=== PATIENT | female | born 1970 | race Caucasian/White ===

== ENCOUNTER 2021-01-03 10:23 | Outpatient (REF) | payer OTHER, SELFPAY | END 2021-01-03 10:24 | disposition home or self-care (01) | LOC: HO.LAB 10:23 | PROVIDERS: Visit Provider Internal Medicine | DX: Z20.822 Contact with and (suspected) exposure to COVID-19 (principal) | CPT/HCPCS: 36415; C9803; U0003; U0005 ==

== ENCOUNTER 2021-05-13 20:02 | Emergency (ER) | payer OTHER, SELFPAY ==
[2021-05-13 20:08] VITALS: BP 130/67; PULSE 86; RESP 16; TEMP 36.4; O2SAT 98; BMI 32.4
--- NOTE | 2021-05-13 20:30 | ED.ABDPAIN ---
HPI - Abdominal Pain General Chief Complaint: Abdominal Pain Stated Complaint: abd pain Time Seen by Provider: 05/13/21 20:24 Source: patient Mode of arrival: EMS Limitations: no limitations History of Present Illness HPI narrative: patient is a 50-year-old female who had for kidney stones a removed 4 days ago at [facility]. She states she had the stent removed today at [facility] and was sent home with codeine. She states she was feeling fine until this afternoon, after she took her coding and she started having lower left-sided abdominal pain which radiates to the left side and up. she states she was given Pyridium so her urine is orange so she cannot tell if there is blood in her urine. She states she does not have pain with urination and she denies any fevers. Related Data Previous Rx's Medication Instructions Recorded nitrofurantoin monohyd/m-cryst 100 mg PO Q12H 5 Days #10 cap 05/13/21 Allergies Allergy/AdvReac Type Severity Reaction Status Date / Time amoxicillin [From AUGMENTIN] Allergy Unknown UNKNOWN Unverified 08/02/20 18:45 clavulanic acid Allergy Unknown UNKNOWN Unverified 08/02/20 18:45 [From AUGMENTIN] Penicillins [PENICILLINS] Allergy Unknown UNKNOWN Unverified 08/02/20 18:45 Review of Systems Review of Systems Yes all other systems are reviewed and are negative Physical Exam Vital Signs: Vital Signs: Last Vital Signs Temp 97.5 F 05/13/21 20:08 Pulse 86 05/13/21 20:08 Resp 16 05/13/21 20:08 BP 130/67 05/13/21 20:08 Pulse Ox 98 05/13/21 20:08 Body Mass Index 32.4 Const: General: cooperative, healthy appearing, comfortable and no acute distress Nutritional Appearance: average body habitus Orientation/consciousness: patient oriented x3 HENMT: Head: Yes normal to inspection Eyes: General: appearance normal, both eyes and all related structures Resp: Effort & Inspection: normal respiratory effort and able to speak in complete sentences Auscultation: clear to auscultation bilaterally Cardio: Rate: regular rate Rhythm: regular rhythm Heart sounds: normal S1 and S2 GI: Inspection: Yes normal to inspection Palpation (GI): Soft to palpation and Tenderness to palpation present (GI) in the LLQ and in the LUQ; not in the epigastrum, not at McBurney's point, not periumbilically, not suprapubicly and Guillermo's sign negative Skin: General skin exam: no rashes or lesions noted Neuro: General: patient oriented x3 Extrem: General: Yes normal to inspection Course Course Course Narrative: patient is a 50-year-old female who had for kidney stones a removed 4 days ago at [facility] and a stent removed today at [facility] and has had a few hours of Left-sided pain since. Vital signs were stable, physical exam remarkable for tenderness in the abdomen on the left side. will get UA, if negative, will do an abd workup. Reevaluation(s) Reevaluation #1: UA+, will give first dose of antibiotics in ED with toradol for pain control. RX for Macrobid sent to [facility]. MDM - Abdominal Pain Lab Data Labs: Lab Results 05/13/21 Range/Units 20:35 Urine Color BROWN Urine Appearance CLOUDY Urine pH 6.0 (5.0-8.0) Ur Specific [place] 1.025 (1.005-1.025) Urine Protein 3+ H (NEG-TRACE) MG/DL Urine Glucose (UA) 100 H (NEG) MG/DL Urine Ketones 15 (NEG) MG/DL Urine Blood 3+ H (NEG) Urine Nitrite POS H (NEG) Ur Leukocyte Esterase NEG (NEG) Urine RBC TNTC H (0) /HPF Urine WBC 1-4 (0-4) /HPF Ur Squamous Epith Cells TRACE /LPF Urine Bacteria 1+ /LPF Discharge Plan Discharge Clinical Impression: Urinary tract infection Qualifiers: Urinary tract infection type: acute cystitis Hematuria presence: with hematuria Qualified Code(s): N30.01 - Acute cystitis with hematuria Patient Disposition: Home, Self-Care Instructions: Urinary Tract Infection in Women (ED) Additional Instructions: Please be sure to drink lots of water to flush out the infection. we also have given you your 1st dose of antibiotics tonight, please fill at the pharmacy tomorrow morning and start taking the antibiotic tomorrow morning. We have also given you 1 dose of Toradol for pain control in the emergency department, please do not take any ibuprofen for 8 hours. Please be sure to follow-up with your urologist. If you develop any fevers or your pain gets worse, please return to the emergency department. Prescriptions: New nitrofurantoin monohyd/m-cryst 100 mg capsule 100 mg PO Q12H 5 Days Qty: 10 RF: 0 PMFSH Social History Social History Advance Directives: No Advance Directives Information Provided: Yes Patient : No
[2021-05-13 20:56] LABS: Glucose Urine UA 100 MG/DL (NEG); Leukocyte Esterase Urine NEG (NEG); Nitrite Urine POS (NEG); Specific Gravity - Urine 1.025 (1.005-1.025); UACC Culture Trigger YES; Urine Blood 3+ (NEG); Urine Ketones 15 MG/DL (NEG); Urine Protein 3+ MG/DL (NEG-TRACE)
[2021-05-13 21:02] LABS: Color Urine BROWN
[2021-05-13 21:04] LABS: Appearance Urine CLOUDY
[2021-05-13 21:12] LABS: Bacteria Urine 1+ /LPF; RBC Urine TNTC /HPF (0); Squamous Epithelial Cell Urine TRACE /LPF
[2021-05-13] MEDS: Nitrofurantoin Monohyd/M-Cryst 100 MG CAPSULE PO (21:21)
[2021-05-13] MEDS: Ketorolac Tromethamine 15 MG/ML VIAL IVPUSH (21:21)
== END 2021-05-13 21:33 | disposition home or self-care (01) ==
PROVIDERS: Physician Assistant; Emergency Provider Internal Medicine; PCP Internal Medicine
DX: N30.01 Acute cystitis with hematuria (principal); Z87.442 Personal history of urinary calculi; Z98.890 Other specified postprocedural states
CPT/HCPCS: 81001; 81003; 87086; 96374; 99284; J1885

== ENCOUNTER 2021-11-01 14:54 | Emergency (ER) | payer OTHER, SELFPAY ==
--- NOTE | ~2021-11-01 | XR_ITS ---
EXAMINATION: XR CHEST CLINICAL INFORMATION: Cough. COMPARISON: Chest radiograph dated from 12/07/2014. TECHNIQUE: 2 views of the chest were obtained. FINDINGS: No significant abnormality is noted involving the heart, lungs, mediastinum, bony thorax or soft tissues. XR/XR chest 2V IMPRESSION: Unremarkable examination.
--- NOTE | ~2021-11-01 | US_ITS ---
Pelvic ultrasound with limited Doppler. History: Pain. Last menstrual period about 2 weeks ago. Technique: Transabdominal and transvaginal ultrasound of pelvic region was performed with paiz scale, color, and limited pulsed Doppler interrogation. Findings: Comparison with a CT of the abdomen/pelvis done earlier today at 8:42 PM. The uterus measures 10.4 x 4.5 x 5.3 cm. No focal masses are seen. The endometrium measures 1.5 mm and is within normal limits. Nabothian cysts are identified in the cervix as well as a small amount of endocervical fluid. The right ovary has a normal morphologic appearance and measures 2.0 x 1.8 x 2.1 cm. There is normal arterial flow on color and pulsed Doppler. The left ovary has a normal morphologic appearance and measures 2.6 x 1.1 x 1.7 cm. There is normal arterial flow on color and pulsed Doppler. There is no free fluid in the pelvis. US/US pelvic ovarian doppler Impression: Small amount of endocervical fluid of uncertain significance and possibly physiologic. Correlate with physical examination. No evidence of ovarian torsion at the moment of this examination.
--- NOTE | ~2021-11-01 | CT_ITS ---
EXAMINATION: CT HEAD WITHOUT CONTRAST CLINICAL INFORMATION: Headache. COMPARISON: No similar priors. TECHNIQUE: Contiguous axial imaging was performed from the skull base to vertex without intravenous administration of contrast. This CT examination was performed using dose optimization techniques as appropriate, variously including the following: *Automated exposure control *Adjustment of mA and/or kV according to patient size (this includes techniques or standardized protocols for targeted exams where dose is matched to indication/reason for exam; i.e. extremities or head) *Use of iterative reconstruction technique DLP: 806 mGy-cm FINDINGS: There is no evidence of acute intracranial hemorrhage or territorial infarction. No abnormal mass effect or midline shift is seen. Reid to white matter differentiation is well preserved. No extra-axial fluid collections are identified. The ventricles are normal in size. There is no abnormal attenuation within the brain parenchyma. The osseous structures and soft tissues are normal. The mastoid air cells and visualized portions of the paranasal sinuses are well aerated. CT/CT head/brain wo con IMPRESSION: No acute intracranial pathology.
--- NOTE | ~2021-11-01 | CT_ITS ---
EXAMINATION: CT ABDOMEN AND PELVIS WITH CONTRAST CLINICAL INFORMATION: Pain of right lower quadrant. COMPARISON: Kidney ultrasound from 06/20/2021. Abdomen CT from 08/25/2014. TECHNIQUE: Multidetector volumetric images were obtained from the superior aspect of the liver through the pubic symphysis following administration 85 mL of Omnipaque 350 intravenous contrast. Sagittal and coronal reformatted images were obtained on the technologist's workstation. This CT examination was performed using dose optimization techniques as appropriate, variously including the following: *Automated exposure control *Adjustment of mA and/or kV according to patient size (this includes techniques or standardized protocols for targeted exams where dose is matched to indication/reason for exam; i.e. extremities or head) *Use of iterative reconstruction technique DLP: 1001 mGy-cm FINDINGS: LUNG BASES: Normal. No pulmonary consolidation or pleural effusion at either lung base. LIVER: The liver has normal size, shape, and attenuation. No evidence of liver mass. GALLBLADDER AND BILIARY TREE: Gallbladder is without radiopaque stones, wall thickening or pericholecystic fluid. No dilated bile ducts. PANCREAS: Normal. No edema, pancreatic ductal dilatation or mass. SPLEEN: Normal. ADRENAL GLANDS: Normal. KIDNEYS AND URETERS: The kidneys have normal size and cortical thickness. No perinephric fluid collection. No urolithiasis or hydroureteronephrosis. BLADDER: Normal. No calculi or wall thickening. BOWEL AND PERITONEUM: Stomach is unremarkable. No dilated loops of bowel. The appendix is normal; it measures 0.5-0.6 cm diameter. No periappendiceal fat stranding. No overt bowel wall thickening. No ascites or pneumoperitoneum. ABDOMINAL WALL: There is a very small fat-containing umbilical hernia. VASCULATURE: Unremarkable. LYMPH NODES: No pathologic sized lymph nodes in the abdomen or pelvis. No inguinal lymphadenopathy. PELVIC VISCERA: There is an anteverted, anteflexed uterus. 1.1 cm subserosal leiomyoma of the anterior uterine body. The ovaries are unremarkable. Small, physiologic amount of free fluid is seen in the posterior cul-de-sac. SKELETAL: Unremarkable. CT/CT abdomen pelvis w con IMPRESSION: * No acute imaging abnormalities in the abdomen or pelvis. No evidence of appendicitis. No specific source of right lower quadrant pain is identified. * No evidence of nephrolithiasis or hydronephrosis.
[2021-11-01 14:56] VITALS: BP 184/80; PULSE 96; RESP 18; TEMP 36.9; O2SAT 98; BMI 34.1
[2021-11-01 15:37] LABS: COVID-19 Test Negative (Negative); IDNOW Serial# 55D5AD1C
[2021-11-01 17:21] LABS: MANUAL DIFF FLAG NO
[2021-11-01 17:23] LABS: Basophils Absolute Auto 0.1 X10*3/uL (0.0-0.2); Basophils Percent Auto 0.9 % (0-2); Eosinophils Absolute Auto 0.1 X10*3/uL (0.0-0.4); Eosinophils Percent Auto 1.2 % (0-4); Hematocrit 40.7 % (37.0-47.0); Hemoglobin 13.6 g/dl (12.0-16.0); Imm Gran Abs Auto 0.02 X10*3/uL (0.00-0.03); Imm Gran Pct Auto 0.2 % (0.0-0.4); Lymphocytes Absolute Auto 2.1 X10*3/uL (1.2-4.9); Lymphocytes Percent Auto 22.2 % (20-40); Mean Corpuscular HGB Conc 33.4 g/dl (31.0-35.0); Mean Corpuscular Volume 83.7 fL (80.0-98.0); Mean Platelet Volume 9.2 fL (9.4-12.3); Monocytes Absolute Auto 0.6 X10*3/uL (0.1-1.2); Monocytes Percent Auto 6.3 % (2-11); Neutrophils Absolute Auto 6.4 x10*3/uL (2.0-8.3); Neutrophils Percent Auto 69.2 % (45-73); Platelet Count 281 X10*3/uL (160-400); Red Blood Count 4.86 X10*6/uL (4.20-5.50); Red Cell Distribution Width 13.2 % (11.0-16.0); White Blood Count 9.3 X10*3/uL (4.8-10.8)
[2021-11-01 17:36] LABS: Alanine Aminotransferase 29 U/L (0-31); Albumin Level 4.1 g/dL (3.5-5.0); Alkaline Phosphatase 79 U/L (39-117); Anion Gap 12 (12-20); Aspartate Amino Transferase 23 U/L (5-31); Bilirubin Total 0.4 mg/dL (0.0-1.0); Blood Urea Nitrogen 21 mg/dL (9-16); Calcium 9.3 mg/dL (8.4-10.2); Carbon Dioxide 27 mmol/L (22-29); Chloride 105 mmol/L (96-108); Creatinine Clr Calc Pharmacy 92.3; Estimated Glomerular Filt Rate > 60; Glucose Random 84 mg/dL (60-115); Potassium 3.6 mmol/L (3.3-5.1); Sodium 140 mmol/L (135-145); Total Protein 7.1 g/dL (6.5-8.0)
--- NOTE | 2021-11-01 19:27 | ED_ITS ---
HPI - Back Pain/Injury General Chief Complaint: Abdominal Pain Stated Complaint: Abd pain Time Seen by Provider: 11/01/21 19:14 Source: patient Mode of arrival: ambulatory Limitations: no limitations History of Present Illness HPI Narrative: 50-year-old female past medical history significant for kidney stones presents to the emergency department severe right lower quadrant pain that is radiating to her back. Patient tells me it started 2 days ago and has progressively worsened, it is now constant in nature she tells me that the pain is worse with movement, coughing and laughing. She reports associated nausea, anorexia. She describes the pain as initially being a crampy abdominal pain and then it turned into stabbing abdominal pain that is constant in nature. She tells me she has never had pain like this before. No previous abdominal surgeries to abdomen. Patient also tells me that she has been experiencing slight upper respiratory symptoms over the past week. She also reports dysuria. Denies weakness, chest pain, shortness of breath, fevers, weakness. MD elicited complaint: other (right sided flank pian and abdominal pain ) Onset (ago): day(s) (2) Timing: constant Severity: severe Pain scale (0-10): 10 Similar Symptoms Previously: No Quality: sharp Location: right flank Radiation: other (RLQ pain radiating to flank ) Exacerbating factors: movement Relieving factors: none Associated symptoms: other (nausea, chills ) Work related injury: No Related Data Previous Rx's Medication Instructions Recorded nitrofurantoin 100 mg PO Q12H 5 Days #10 cap 05/13/21 monohydrate/macrocrystals 100 mg capsule morphine 15 mg immediate release 15 mg PO Q8H PRN #10 tab 11/01/21 tablet ondansetron 4 mg disintegrating 4 mg PO ONCE PRN #10 tab 11/01/21 tablet Allergies Allergy/AdvReac Type Severity Reaction Status Date / Time amoxicillin [From AUGMENTIN] Allergy Unknown UNKNOWN Verified 11/01/21 14:55 clavulanic acid Allergy Unknown UNKNOWN Verified 11/01/21 14:55 [From AUGMENTIN] Penicillins [PENICILLINS] Allergy Unknown UNKNOWN Verified 11/01/21 14:55 Review of Systems Review of Systems: Constitutional : No Weight loss, No Fever, No Chills, + Fatigue, No Malaise, + anorexia ENT/Mouth : No sore throat, No Rhinorrhea Eyes: No Eye Pain, No Swelling, No Redness Cardiovascular : No Chest Pain, No SOB, No Dyspnea on Exertion, No Orthopnea, No Edema, No Palpitations Respiratory : + Cough, No Sputum, No Wheezing Gastrointestinal : + Nausea, No Vomiting, No Diarrhea, No Constipation, + abdominal Pain, No Hematochezia, No Melena Genitourinary : No Dysuria, No Urinary Frequency, No Hematuria, Musculoskeletal : No joint pain, No Myalgias, No Joint Swelling Skin : No Skin Lesions, No rash Neuro : No Weakness, No Numbness, No Dizziness, No Headache Psych : No Anxiety/Panic, No Depression Heme/Lymph: No Bruising, No Bleeding,No Lymphadenopathy Endocrine : No Polyuria, No Polydipsia All other systems reviewed and are negative Yes all other systems are reviewed and are negative [facility] Past Medical History Attestation statement: The following information was validated with the patient. Source: old records reviewed and nursing notes reviewed Medical History Kidney stones Patient denies medical problems Social History Social History Advance Directives: No Advance Directives Information Provided: Yes Physical Exam Vital Signs: Vital Signs: Last Vital Signs Temp 98.4 F 11/01/21 14:56 Pulse 96 11/01/21 14:56 Resp 18 11/01/21 14:56 BP 184/80 H 11/01/21 14:56 Pulse Ox 98 11/01/21 14:56 BMI result Body Mass Index 34.1 VSS- hypertension Appearance: Alert.? Oriented X3.? No acute distress.? Patient appears uncomfortable Head: Normocephalic, atraumatic, no step-offs or deformities Eyes: Pupils equal, round and reactive to light.? ENT: Pharynx normal.? Neck: Normal inspection.? Neck supple.? CVS: Normal heart rate and rhythm.? Pulses normal.? Respiratory: No respiratory distress.? Breath sounds normal.? Abdomen: Soft and + tenderness to RUQ, RLQ. + rosving sign, mcburneys, psoas and obtruator. Skin: Skin warm and dry.? Normal skin color.? Normal skin turgor.? Extremities: No lower extremity edema.? No calf ttp. 5/5 strength to bilateral upper and lower extremities Back: No midline tenderness, no C-spine tenderness, full range of motion, no CVA tenderness bilaterally Neuro: Oriented X 3.? No motor deficit.? No sensory deficit. Course Reevaluation(s) Reevaluation #1: CT of head negative, CT of abdomen pelvis negative. UA pending Time: 21:32 Reevaluation #2: CT/NG by PCR urine pending at this time. Ultrasound report pending. Sign out has been given to Brandy YU. At time that sign out was given patient was stable, vital signs were stable, patient's pain was well controlled with morphine IV. Time: 22:27 MDM - Back Pain/Injury MDM Narrative Medical decision making narrative: 1699 50-year-old female past medical history significant for nephrolithiasis presents to the emergency department with severe right lower quadrant pain that is constant and stabbing in nature, radiating to the right flank with associated nausea, anorexia x2 days progressively worsening. No previous abdominal surgeries. Last meal was this morning. Patient is also complaining of a severe headache, localized to the front aspect of her head, 1 of the worst 1 she has had. She tells me it is not going away. Upon physical examination patient's vitals stable, she is noted to be hypertens cathy, likely secondary to pain. She has severe pain with palpation of right lower quadrant and right upper quadrant. Positive Rovsing, obturator, psoas and McBurney's point. Concerning for appendicitis. Lungs are clear. Regular rate and rhythm. No focal neuro deficits. Patient appears uncomfortable Plan at this time is to obtain basic labs, and obtain a CT of the abdomen and pelvis with contrast. Patient is also complaining of a severe headache, worst 1 in a long time a CT of the head brain also be done to rule out a bleed. Basic labs will be obtained. As well as inflammatory markers. Medical Records Attestation: I reviewed the patient's medical records. Lab Data Attestation: I reviewed the patient's lab results. Result diagrams: 11/01/21 17:10 11/01/21 17:10 Labs: Lab Results 11/01/21 11/01/21 11/01/21 Range/Units 15:02 17:10 17:10 WBC 9.3 (4.8-10.8) X10*3/uL RBC 4.86 (4.20-5.50) X10*6/uL Hgb 13.6 (12.0-16.0) g/dl Hct 40.7 (37.0-47.0) % MCV 83.7 (80.0-98.0) fL MCH 28.0 (27.0-33.0) pg MCHC 33.4 (31.0-35.0) g/dl RDW 13.2 (11.0-16.0) % Plt Count 281 (160-400) X10*3/uL MPV 9.2 L (9.4-12.3) fL Immature Gran % (Auto) 0.2 (0.0-0.4) % Neut % (Auto) 69.2 (45-73) % Lymph % (Auto) 22.2 (20-40) % Adams % (Auto) 6.3 (2-11) % Eos % (Auto) 1.2 (0-4) % Baso % (Auto) 0.9 (0-2) % Lymph # (Auto) 2.1 (1.2-4.9) X10*3/uL Adams # (Auto) 0.6 (0.1-1.2) X10*3/uL Eos # (Auto) 0.1 (0.0-0.4) X10*3/uL Baso # (Auto) 0.1 (0.0-0.2) X10*3/uL Abs Immat Gran (auto) 0.02 (0.00-0.03) X10*3/uL Absolute Neuts (auto) 6.4 (2.0-8.3) x10*3/uL Absolute Nucleated RBC 0.000 (0.0-0.012) X10*3/uL Nucleated RBC % (auto) 0.0 (0.0-0.2) /100WBC ESR (0-20) MM/HR Sodium 140 (135-145) mmol/L Potassium 3.6 (3.3-5.1) mmol/L Chloride 105 (96-108) mmol/L Carbon Dioxide 27 (22-29) mmol/L Anion Gap 12 (12-20) BUN 21 H (9-16) mg/dL Creatinine 0.84 (0.5-1.4) mg/dL Estim Creat Clear Calc 92.3 Estimated GFR > 60 Random Glucose 84 (60-115) mg/dL Calcium 9.3 (8.4-10.2) mg/dL Total Bilirubin 0.4 (0.0-1.0) mg/dL AST 23 (5-31) U/L ALT 29 (0-31) U/L Alkaline Phosphatase 79 (39-117) U/L C-Reactive Protein 0.56 H (< or = 0.50) mg/dL Total Protein 7.1 (6.5-8.0) g/dL Albumin 4.1 (3.5-5.0) g/dL Amylase 30 (28-100) U/L Lipase 16 (8-78) U/L Beta HCG, Quant < 2 mIU/mL COVID-19 (BETTINA) Negative (Negative) COVID-19 Clin Com See Note 11/01/21 Range/Units 17:10 WBC (4.8-10.8) X10*3/uL RBC (4.20-5.50) X10*6/uL Hgb (12.0-16.0) g/dl Hct (37.0-47.0) % MCV (80.0-98.0) fL MCH (27.0-33.0) pg MCHC (31.0-35.0) g/dl RDW (11.0-16.0) % Plt Count (160-400) X10*3/uL MPV (9.4-12.3) fL Immature Gran % (Auto) (0.0-0.4) % Neut % (Auto) (45-73) % Lymph % (Auto) (20-40) % Adams % (Auto) (2-11) % Eos % (Auto) (0-4) % Baso % (Auto) (0-2) % Lymph # (Auto) (1.2-4.9) X10*3/uL Adams # (Auto) (0.1-1.2) X10*3/uL Eos # (Auto) (0.0-0.4) X10*3/uL Baso # (Auto) (0.0-0.2) X10*3/uL Abs Immat Gran (auto) (0.00-0.03) X10*3/uL Absolute Neuts (auto) (2.0-8.3) x10*3/uL Absolute Nucleated RBC (0.0-0.012) X10*3/uL Nucleated RBC % (auto) (0.0-0.2) /100WBC ESR 9 (0-20) MM/HR Sodium (135-145) mmol/L Potassium (3.3-5.1) mmol/L Chloride (96-108) mmol/L Carbon Dioxide (22-29) mmol/L Anion Gap (12-20) BUN (9-16) mg/dL Creatinine (0.5-1.4) mg/dL Estim Creat Clear Calc Estimated GFR Random Glucose (60-115) mg/dL Calcium (8.4-10.2) mg/dL Total Bilirubin (0.0-1.0) mg/dL AST (5-31) U/L ALT (0-31) U/L Alkaline Phosphatase (39-117) U/L C-Reactive Protein (< or = 0.50) mg/dL Total Protein (6.5-8.0) g/dL Albumin (3.5-5.0) g/dL Amylase (28-100) U/L Lipase (8-78) U/L Beta HCG, Quant mIU/mL COVID-19 (BETTINA) (Negative) COVID-19 Clin Com Imaging Data Chest x-ray: Attestation: I personally reviewed and interpreted this imaging study as follows: Radiologist's impression: FINDINGS: No significant abnormality is noted involving the heart, lungs, mediastinum, bony thorax or soft tissues. XR/XR chest 2V IMPRESSION: Unremarkable examination. CT scan - abdomen: Attestation: I personally reviewed and interpreted this imaging study as follows: Radiologist's impression: CT/CT abdomen pelvis w con IMPRESSION: *? No acute imaging abnormalities in the abdomen or pelvis. No evidence of appendicitis. No specific source of right lower quadrant pain is identified. *? No evidence of nephrolithiasis or hydronephrosis. CT of head: Attestation: I personally reviewed and interpreted this imaging study as follows: Radiologist's impression: FINDINGS: There is no evidence of acute intracranial hemorrhage or territorial infarction. No abnormal mass effect or midline shift is seen. Reid to white matter differentiation is well preserved. No extra-axial fluid collections are identified. The ventricles are normal in size. There is no abnormal attenuation within the brain parenchyma. The osseous structures and soft tissues are normal. The mastoid air cells and visualized portions of the paranasal sinuses are well aerated. ? CT/CT head/brain wo con IMPRESSION: No acute intracranial pathology. Critical Care Time Critical Care Time Critical Care Time: No Discharge Plan Discharge Clinical Impression: Abdominal pain, Headache Patient Disposition: Home, Self-Care Instructions: Acute Headache (ED), Abdominal Pain (ED) Additional Instructions: Take your medications as prescribed. If you were prescribed antibiotics today, it is important that you take your medication to their entirety, do not skip any doses, do not finish them early. Follow-up with your primary care provider this week. Take ibuprofen every 6 hours Tylenol every 4 as needed for pain preferably. Your other option is to take a narcotic, morphine has been sent to her pharmacy, morphine can cause addiction and dependence, I advised to try ibuprofen and Tylenol alternating, and only take a narcotic if severe pain is being experienced Return to the emergency department with new or worsening symptoms. In case of emergency call 911 I attest that I have reviewed patients Mass[employer], and at the time prescribing the patient a controlled substance is appropriate based off of patients diagnosis and treatment plan. Prescriptions: New ondansetron 4 mg tablet,disintegrating 4 mg PO ONCE PRN (Reason: nausea and vomiting) Qty: 10 RF: 0 morphine 15 mg tablet 15 mg PO Q8H PRN (Reason: pain) Qty: 10 RF: 0 No Action nitrofurantoin monohyd/m-cryst 100 mg capsule 100 mg PO Q12H 5 Days Qty: 10 RF: 0 Referrals: Humza Huddleston MD [Primary Care Provider] - 2 days
[2021-11-01 19:35] LABS: Amylase 30 U/L (28-100); Lipase 16 U/L (8-78)
[2021-11-01] MEDS: Morphine Sulfate 4 MG/ML CARTRIDGE IVPUSH (19:57)
[2021-11-01] MEDS: ondansetron HCL 4 MG/2 ML VIAL IVPUSH (19:58)
[2021-11-01 20:10] LABS: C Reactive Protein 0.56 mg/dL (< or = 0.50)
[2021-11-01 20:12] LABS: HCG Quantitative < 2 mIU/mL
[2021-11-01] MEDS: iohexoL 350 MG/ML 100 ML INFUS..BTL 85 ML IV (20:59)
[2021-11-01 21:09] LABS: Erythrocyte Sedimentation Rate 9 MM/HR (0-20)
[2021-11-01 22:53] LABS: Appearance Urine CLEAR; Color Urine YELLOW; Glucose Urine UA NEG (NEG); Leukocyte Esterase Urine NEG (NEG); Nitrite Urine NEG (NEG); Urine Blood NEG (NEG); Urine Ketones NEG (NEG); Urine Protein NEG (NEG-TRACE)
[2021-11-01] MEDS: 0.9 % Sodium Chloride 1,000 ML 999 ML IV (23:04)
[2021-11-01 23:43] VITALS: BP 148/60; PULSE 74; RESP 16; O2SAT 96
[2021-11-03 12:09] LABS: CT PCR NOT DETECTED (Not Detect.); NG PCR NOT DETECTED (Not Detect.)
== END 2021-11-02 00:40 | disposition home or self-care (01) ==
PROVIDERS: Physician Assistant; Emergency Provider Emergency Medicine; PCP Internal Medicine
DX: R10.31 Right lower quadrant pain (principal); R51.9 Headache, unspecified; R60.0 Localized edema; R07.89 Other chest pain; R06.02 Shortness of breath; Z20.822 Contact with and (suspected) exposure to COVID-19; Z79.899 Other long term (current) drug therapy
CPT/HCPCS: 36415; 70450; 71046; 74177; 80053; 81003; 82150; 83690; 84702; 85025; 85652; 86140; 87491; 87591; 87635; 93975; 96361; 96374; 96375; 99283; J2270; J2405; Q9967

== ENCOUNTER 2021-12-17 09:02 | Emergency (ER) | payer OTHER, SELFPAY ==
[2021-12-17 09:37] VITALS: BP 152/80; PULSE 18; RESP 18; TEMP 36.7; O2SAT 98; BMI 36.6
--- NOTE | 2021-12-17 09:41 | ECG_ITS ---
Test Reason : high blood pressure Blood Pressure : / mmHG Vent. Rate : 077 BPM Atrial Rate : 077 BPM P-R Int : 176 ms QRS Dur : 084 ms QT Int : 456 ms P-R-T Axes : 070 039 070 degrees QTc Int : 516 ms Normal sinus rhythm Nonspecific ST and T wave abnormality Abnormal ECG When compared with ECG of 07-DEC-2014 20:12, Nonspecific T wave abnormality now evident in Anterolateral leads Referred By: Generic ED Physician Electronically Signed By:JANNA BRAND
--- NOTE | 2021-12-17 11:05 | ED_ITS ---
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 elicited complaint: headache (chest tighness, BP 170 to 150s this past week) Pertinent past history: other (headaches, ADHD) Onset (ago): week(s) (1) Onset description: gradually Location: diffuse Severity: moderate Quality & Timing: aching and dull Exacerbating factors: none Relieving factors: nothing Context: other (recent noted increased in her BP - chronically on ADHD medications no prior issues with her BP) Associated symptoms: other (chest tightness) Treatments prior to arrival: other (takes gabapentin) Related Data Previous Rx's Medication Instructions Recorded nitrofurantoin 100 mg PO Q12H 5 Days #10 cap 05/13/21 monohydrate/macrocrystals 100 mg capsule morphine 15 mg immediate release 15 mg PO Q8H PRN #10 tab 11/01/21 tablet ondansetron 4 mg disintegrating 4 mg PO ONCE PRN #10 tab 11/01/21 tablet amlodipine 5 mg tablet 5 mg PO DAILY #30 tab 12/17/21 Allergies Allergy/AdvReac Type Severity Reaction Status Date / Time amoxicillin [From Allergy Unknown UNKNOWN Verified 12/17/21 09:37 AUGMENTIN] clavulanic acid Allergy Unknown UNKNOWN Verified 12/17/21 09:37 [From AUGMENTIN] Penicillins [PENICILLINS] Allergy Unknown UNKNOWN Verified 12/17/21 09:37 Review of Systems Verdana 4l Review of Systems: Verdana 4d Verdana 4d Constitutional : No Fever, No Chills, No Fatigue ENT/Mouth : No sore throat, No Rhinorrhea Eyes: No Eye Pain, No Swelling, No Redness Cardiovascular : pos Chest Pain, No SOB, No Dyspnea on Exertion Respiratory : No Cough, No Sputum GastrointestinalGastrointestinal : No Nausea, No Vomiting, No Diarrhea, No abdominal Pain Genitourinary : No Dysuria, No Urinary Frequency, No Hematuria, Musculoskeletal : No joint pain, No Myalgias, No Joint Swelling Skin : No Skin Lesions, No rash Neuro : No Weakness, No Numbness, No Dizziness, positive Headache Psych : No Anxiety/Panic, No Depression Heme/Lymph: No Bruising, No Bleeding,No Lymphadenopathy Endocrine : No Polyuria, No Polydipsia All other systems reviewed and are negative [facility] Past Medical History Medical History ADHD Depression Kidney stones Patient denies medical problems Social History Social History Patient Tobacco Use Status: Never used Tobacco Advance Directives: No Advance Directives Information Provided: No Physical Exam Verdana 4l Vital Signs: Verdana 4d Verdana 4d Vital Signs: Verdana 4d Verdana 4Bd Last Vital Signs Verdana 4d Drilling Inspector New 4d Drilling Inspector New 4d Temp 98.0 F 12/17/21 09:37 Drilling Inspector New 4d Pulse 18 L 12/17/21 09:37 Drilling Inspector New 4d Resp 18 12/17/21 09:37 BP 152/80 H 12/17/21 09:37 Pulse Ox 98 12/17/21 09:37 BMI result Body Mass Index 36.6 Appearance: Alert. Oriented X3. No acute distress. Eyes: Pupils equal, round and reactive to light. ENT: Pharynx normal. Neck: Normal inspection. Neck supple. CVS: Normal heart rate and rhythm. Pulses normal. Respiratory: No respiratory distress. Breath sounds normal. Abdomen: Soft and non-tender. Skin: Skin warm and dry. Normal skin color. Normal skin turgor. Extremities: No lower extremity edema. No calf ttp Neuro: Oriented X 3. No motor deficit. No sensory deficit. 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 Will obtain basic labs, trop x 2, EKG, likely start on low dose amlodipine and reassess. No neuro findings, afebrile, headaches have been present for some time doubt DIE TRIMMER infection or SAH Lab Data Result diagrams: 12/17/21 11:21 12/17/21 11:21 Labs: Lab Results 12/17/21 12/17/21 12/17/21 Range/Units 11:21 11:21 11:21 WBC 6.9 (4.8-10.8) X10*3/uL RBC 4.75 (4.20-5.50) X10*6/uL Hgb 13.2 (12.0-16.0) g/dl Hct 40.0 (37.0-47.0) % MCV 84.2 (80.0-98.0) fL MCH 27.8 (27.0-33.0) pg MCHC 33.0 (31.0-35.0) g/dl RDW 13.4 (11.0-16.0) % Plt Count 300 (160-400) X10*3/uL MPV 9.5 (9.4-12.3) fL Immature Gran % (Auto) 0.3 (0.0-0.4) % Neut % (Auto) 64.8 (45-73) % Lymph % (Auto) 27.3 (20-40) % Camp % (Auto) 6.0 (2-11) % Eos % (Auto) 0.6 (0-4) % Baso % (Auto) 1.0 (0-2) % Lymph # (Auto) 1.9 (1.2-4.9) X10*3/uL Camp # (Auto) 0.4 (0.1-1.2) X10*3/uL Eos # (Auto) 0.0 (0.0-0.4) X10*3/uL Baso # (Auto) 0.1 (0.0-0.2) X10*3/uL Abs Immat Gran (auto) 0.02 (0.00-0.03) X10*3/uL Absolute Neuts (auto) 4.5 (2.0-8.3) x10*3/uL Absolute Nucleated RBC 0.000 (0.0-0.012) X10*3/uL Nucleated RBC % (auto) 0.0 (0.0-0.2) /100WBC Sodium 138 (135-145) mmol/L Potassium 3.3 (3.3-5.1) mmol/L Chloride 105 (96-108) mmol/L Carbon Dioxide 26 (22-29) mmol/L Anion Gap 10 L (12-20) BUN 18 H (9-16) mg/dL Creatinine 0.86 (0.5-1.4) mg/dL Estim Creat Clear Calc 92.6 Estimated GFR > 60 Random Glucose 103 (60-115) mg/dL Calcium 8.7 D (8.4-10.2) mg/dL Total Bilirubin 0.4 (0.0-1.0) mg/dL AST 18 (5-31) U/L ALT 16 (0-31) U/L Alkaline Phosphatase 76 (39-117) U/L Troponin I High Sens (<3.5-17.0) ng/L Total Protein 7.0 (6.5-8.0) g/dL Albumin 4.0 (3.5-5.0) g/dL TSH (0.32-4.0) uIU/mL COVID-19 (BETTINA) Negative (Negative) COVID-19 Clin Com See Note 12/17/21 12/17/21 12/17/21 Range/Units 11:21 11:21 13:41 WBC (4.8-10.8) X10*3/uL RBC (4.20-5.50) X10*6/uL Hgb (12.0-16.0) g/dl Hct (37.0-47.0) % MCV (80.0-98.0) fL MCH (27.0-33.0) pg MCHC (31.0-35.0) g/dl RDW (11.0-16.0) % Plt Count (160-400) X10*3/uL MPV (9.4-12.3) fL Immature Gran % (Auto) (0.0-0.4) % Neut % (Auto) (45-73) % Lymph % (Auto) (20-40) % Camp % (Auto) (2-11) % Eos % (Auto) (0-4) % Baso % (Auto) (0-2) % Lymph # (Auto) (1.2-4.9) X10*3/uL Camp # (Auto) (0.1-1.2) X10*3/uL Eos # (Auto) (0.0-0.4) X10*3/uL Baso # (Auto) (0.0-0.2) X10*3/uL Abs Immat Gran (auto) (0.00-0.03) X10*3/uL Absolute Neuts (auto) (2.0-8.3) x10*3/uL Absolute Nucleated RBC (0.0-0.012) X10*3/uL Nucleated RBC % (auto) (0.0-0.2) /100WBC Sodium (135-145) mmol/L Potassium (3.3-5.1) mmol/L Chloride (96-108) mmol/L Carbon Dioxide (22-29) mmol/L Anion Gap (12-20) BUN (9-16) mg/dL Creatinine (0.5-1.4) mg/dL Estim Creat Clear Calc Estimated GFR Random Glucose (60-115) mg/dL Calcium (8.4-10.2) mg/dL Total Bilirubin (0.0-1.0) mg/dL AST (5-31) U/L ALT (0-31) U/L Alkaline Phosphatase (39-117) U/L Troponin I High Sens 8.6 10.0 (<3.5-17.0) ng/L Total Protein (6.5-8.0) g/dL Albumin (3.5-5.0) g/dL TSH 1.43 (0.32-4.0) uIU/mL COVID-19 (BETTINA) (Negative) COVID-19 Clin Com ECG Data Attestation: I personally reviewed and interpreted this ECG as follows: ECG interpretation date: 12/17/21 ECG interpretation time: 11:13 Interpretation: Rate: 77 Rhythm: NSR Ophiem: normal Normal P waves. Normal ASHLEY. Normal QRS complex. ST T wave : nonspecific, no RICHMOND qTC: normal prior studies: no acute ischemia no sig change 2013 The study has been interpreted contemporaneously by me. . Discharge Plan Discharge Clinical Impression: HTN (hypertension) Qualifiers: Hypertension type: unspecified Qualified Code(s): I10 - Essential (primary) hypertension Chest pain Qualifiers: Chest pain type: other chest pain Qualified Code(s): R07.89 - Other chest pain Patient Disposition: Home, Self-Care Instructions: Chest Pain (ED), Hypertension (ED) Additional Instructions: return to ED for any worsening symptoms or concerns monitor blood pressure if you feel weak dizzy hold all medications and check blood pressure please follow up with your doctor heart tests negative x 2 negative for COVID Prescriptions: New amlodipine 5 mg tablet 5 mg PO DAILY Qty: 30 0RF No Action nitrofurantoin monohyd/m-cryst 100 mg capsule 100 mg PO Q12H 5 Days Qty: 10 0RF Rx Instructions: must administer with a meal/food ondansetron 4 mg tablet,disintegrating 4 mg PO ONCE PRN (Reason: nausea and vomiting) Qty: 10 0RF morphine 15 mg tablet 15 mg PO Q8H PRN (Reason: pain) Qty: 10 0RF Rx Instructions: Patient can partially fill prescription upon request Referrals: Humza Huddleston MD [Primary Care Provider] - 3 days Stand Alone Forms: Work/School Release
[2021-12-17 11:27] LABS: MANUAL DIFF FLAG NO
[2021-12-17 11:30] LABS: Basophils Absolute Auto 0.1 X10*3/uL (0.0-0.2); Eosinophils Percent Auto 0.6 % (0-4); Hemoglobin 13.2 g/dl (12.0-16.0); Imm Gran Abs Auto 0.02 X10*3/uL (0.00-0.03); Imm Gran Pct Auto 0.3 % (0.0-0.4); Lymphocytes Absolute Auto 1.9 X10*3/uL (1.2-4.9); Lymphocytes Percent Auto 27.3 % (20-40); Mean Corpuscular Hemoglobin 27.8 pg (27.0-33.0); Mean Corpuscular Volume 84.2 fL (80.0-98.0); Mean Platelet Volume 9.5 fL (9.4-12.3); Monocytes Absolute Auto 0.4 X10*3/uL (0.1-1.2); Neutrophils Absolute Auto 4.5 x10*3/uL (2.0-8.3); Neutrophils Percent Auto 64.8 % (45-73); Platelet Count 300 X10*3/uL (160-400); Red Blood Count 4.75 X10*6/uL (4.20-5.50); Red Cell Distribution Width 13.4 % (11.0-16.0); White Blood Count 6.9 X10*3/uL (4.8-10.8)
[2021-12-17 11:45] LABS: Alanine Aminotransferase 16 U/L (0-31); Alkaline Phosphatase 76 U/L (39-117); Anion Gap 10 (12-20); Aspartate Amino Transferase 18 U/L (5-31); Bilirubin Total 0.4 mg/dL (0.0-1.0); Blood Urea Nitrogen 18 mg/dL (9-16); Calcium 8.7 mg/dL (8.4-10.2); Carbon Dioxide 26 mmol/L (22-29); Chloride 105 mmol/L (96-108); Creatinine Clr Calc Pharmacy 92.6; Estimated Glomerular Filt Rate > 60; Glucose Random 103 mg/dL (60-115); Potassium 3.3 mmol/L (3.3-5.1); Sodium 138 mmol/L (135-145)
[2021-12-17 11:47] LABS: COVID-19 Test Negative (Negative); IDNOW Serial# 9DD0AD1C
[2021-12-17 11:52] LABS: Troponin-I High Sensitivity 8.6 ng/L (<3.5-17.0)
[2021-12-17 12:03] LABS: TSH reflex Free T4 1.43 uIU/mL (0.32-4.0)
[2021-12-17] MEDS: amLODIPine Besylate 5 MG TABLET PO (13:28)
[2021-12-17 14:00] VITALS: BP 150/88; PULSE 87; RESP 18; TEMP 36.7; O2SAT 98
== END 2021-12-17 15:29 | disposition home or self-care (01) ==
PROVIDERS: Emergency Provider Emergency Medicine; PCP Internal Medicine
DX: I10 Essential (primary) hypertension (principal); R07.89 Other chest pain; Z20.822 Contact with and (suspected) exposure to COVID-19; F90.9 Attention-deficit hyperactivity disorder, unspecified type; Z79.899 Other long term (current) drug therapy
CPT/HCPCS: 36415; 80053; 84443; 84484; 85025; 87635; 93005; 99283; 99284

== ENCOUNTER 2024-08-12 15:06 | Outpatient (REF) | payer OTHER, SELFPAY ==
--- NOTE | ~2024-08-12 | US_ITS ---
EXAMINATION: US RETROPERITONEAL LIMITED (RENAL ONLY) CLINICAL INFORMATION: CKD stage 3. COMPARISON: Renal ultrasound 06/10/2023. X-ray abdomen KUB 06/10/2023. Ultrasound kidneys and bladder 02/14/2022. CT abdomen and pelvis 11/01/2021. X-ray abdomen 01/06/2019. TECHNIQUE: Real-time imaging of the kidneys. FINDINGS: RIGHT KIDNEY: 10.6 x 5.8 x 5.8 cm (SAG x AP x TRV). The kidney is normal in size, contour, and echogenicity. Renal cortical thickness is normal. No calculi or focal parenchymal lesions. No hydronephrosis. LEFT KIDNEY: 10.2 x 5.4 x 4.7 cm (SAG x AP x TRV). The kidney is normal in size, contour, and echogenicity. Renal cortical thickness is normal. No calculi or focal parenchymal lesions. No hydronephrosis. US/US renal BI IMPRESSION: Unremarkable examination. Electronically signed by: Tavares Catalan MD 09/19/2024 11:43 PM EST
== END 2024-08-12 15:07 | disposition home or self-care (01) ==
LOC: HO.US 15:06
PROVIDERS: PCP Internal Medicine; Visit Provider Internal Medicine Nephrology
DX: N18.31 Chronic kidney disease, stage 3a (principal)
CPT/HCPCS: 76775

== ENCOUNTER 2024-12-20 14:42 | Emergency (ER) | payer OTHER, SELFPAY ==
[2024-12-20 16:25] VITALS: BP 142/84; PULSE 106; RESP 20; TEMP 36.9; O2SAT 98; BMI 36.1
--- OUTSIDE RECORDS SUMMARY | 2024-12-20 16:33 | XMS_ITS | Clinical Summary ---
Author Organization [facility] Address [address] [place] [address] Phone Care Team Providers Care Delivery Table Feeder Name Role Phone Lisa Sanz APRN Primary Care Provider Allergies Active Allergy Reactions Criticality Noted Date Comments Amoxicillin-Pot Clavulanate 10/27/20 17 Clarithromycin 10/27/2017 Molds & Smuts 10/27/2017 Penicillins Other (see comments) 10/27/2017 Medications lisinopril 10 MG tablet Take 10 mg by mouth 1 (one) time each day 4 Active atorvastatin (LIPITOR) 10 MG tablet Take 10 mg by mouth 1 (one) time each day 4 Active buPROPion SR (WELLBUTRIN SR) 150 MG 12 hr tablet Take 150 mg by mouth 4 Active escitalopram (LEXAPRO) 5 MG tablet Take 5 mg by mouth 1 (one) time each day 4 Active cloNIDine HCl ER 0.1 MG tablet sustained-rele ase 12 hour TAKE 2 TABLETS IN THE MORNING AND 2 TABLETS AT BEDTIME. 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 hypertensio n 06/20/2024 Anogenital herpesviral infection 10/27/2017 Overview (06/20/2024): PRN Charlee, pt will call if she needs refills Immunizations Name Administration Dates Next Due Hepatitis B 03/21/2014,10/19/2013,09/19/2013 Influenza, MDCK, PF, Quadrivalent 09/16/2016 Influenza, Quadrivalent, Pre servative Free 08/11/2023,09/18/2022,08/28/2021,2019 Influenza, Unspecified 09/07/2015,2012,08/13/2012,2009,08/21/2009,09/08/2008 MMR 03/12/2004 Pfizer SARS-COV-2 09/11/2023,02/14/2021,01/25/20 21 Pneumococcal, Unspecified 09/18/2022 Shingrix 01/10/2024,08/11/2023 TD Preservative Free 02/16/2016 Tdap 08/21/2009 Family History Medical History Relation Comments Cancer Maternal Grandmother breast Relation Status Comments Maternal Grandmother Social History Tobacco Use Types Packs/Day Years Used Date Smoking Tobacco: Never Smokeless Tobacco: Never Tobacco Cessation:Counseling Given: Not Answered Alcohol Use Standard Drinks/Week Comments Yes 0 (1 standard drink = 0.6 oz pur e alcohol) occ- socially- rarely Comments Unknown Sex and Gender Information Value Date Recorded Sex Assigned at Not on file Legal Sex Female 1:28 PM EDT Gender Identity Not on file Sexual Orientation Not on file Last Filed Vital Signs Vital Sign Reading Time Taken Comments Blood Pressure 130/64 08/01/2024 3:26 PM EDT Pulse 74 08/01/2024 3:26 PM EDT Temperature - - Respiratory Rate - - Oxygen Saturation 99% 08/01/2024 3:26 PM EDT Inhaled Oxygen Concentration - - Weight 99.1 kg (218 lb 6.4 oz) 06/20/2024 4:17 P M EDT Height - - Body Mass Index - - Plan of Treatment Upcoming Encounters Date Type Department Care Team (Late st Contact Info) Description 07/31/2025 1:30 PM EDT Office Visit [facility] [address] [place] [address] Rodney Ortez MD [address] [place] [address] Health Maintenance Due Date Last Done Comments Breast Cancer Screening 1972 Pneumococcal Vaccine: Pediat rics (0 to 5 Years) and At-Risk Patients (6 to 64 Years) (1 of 2 - PCV) 1978 09/18/2022 Hepatitis B Vaccine (1 of 3 - 19+ 3-dose series) 1991 03/21/2014, 10/19/2013, 09/19/2013 Colorectal Cancer Screening: Annual FOBT 2021 Colorectal Cancer Screening: Colonoscopy 2021 Colorectal Cancer Screening: Sigmoidoscopy 2021 Influenza Vaccine (#1) 2024 , 09/18/2022, 08/28/2021, Additional history exists Insurance [facility] Care Teams Delivery Table Feeder Relationship Specialty Start Date End Date Lisa Sanz APRN [address] [place] [address] PCP - General Internal Medicine 05/03/24
[2024-12-20 16:46] LABS: MANUAL DIFF FLAG NO
[2024-12-20 16:49] LABS: Basophils Percent Auto 0.2 % (0-2); Eosinophils Absolute Auto 0.1 X10*3/uL (0.0-0.4); Eosinophils Percent Auto 0.7 % (0-4); Hematocrit 44.6 % (37.0-47.0); Hemoglobin 15.2 g/dl (12.0-16.0); Imm Gran Abs Auto 0.03 X10*3/uL (0.00-0.03); Imm Gran Pct Auto 0.3 % (0.0-0.4); Lymphocytes Absolute Auto 1.4 X10*3/uL (1.2-4.9); Lymphocytes Percent Auto 14.6 % (20-40); Mean Corpuscular HGB Conc 34.1 g/dl (31.0-35.0); Mean Corpuscular Hemoglobin 28.8 pg (27.0-33.0); Mean Corpuscular Volume 84.5 fL (80.0-98.0); Monocytes Absolute Auto 0.5 X10*3/uL (0.1-1.2); Monocytes Percent Auto 5.5 % (2-11); Neutrophils Absolute Auto 7.8 x10*3/uL (2.0-8.3); Neutrophils Percent Auto 78.7 % (45-73); Platelet Count 390 X10*3/uL (160-400); Red Blood Count 5.28 X10*6/uL (4.20-5.50); Red Cell Distribution Width 13.3 % (11.0-16.0); White Blood Count 9.9 X10*3/uL (4.8-10.8)
[2024-12-20 17:11] LABS: Alanine Aminotransferase 32 U/L (0-31); Albumin Level 4.1 g/dL (3.5-5.0); Alkaline Phosphatase 75 U/L (39-117); Anion Gap 17 (12-20); Aspartate Amino Transferase 27 U/L (5-31); Bilirubin Total 0.9 mg/dL (0.0-1.0); Blood Urea Nitrogen 23 mg/dL (9-16); Calcium 8.8 mg/dL (8.4-10.2); Carbon Dioxide 27 mmol/L (22-29); Chloride 103 mmol/L (96-108); Estimated Glomerular Filt Rate 53; Glucose Random 87 mg/dL (60-115); Lipase 11 U/L (8-78); Magnesium 1.8 mg/dL (1.6-2.6); Potassium 4.2 mmol/L (3.3-5.1); Sodium 143 mmol/L (135-145); Total Protein 7.6 g/dL (6.5-8.0)
--- NOTE | 2024-12-20 17:58 | ED.GENADULT ---
HPI - General Adult General Chief complaint: Nausea/Vomiting/Diarrhea Stated complaint: Sent from urgent care - norovirus Time Seen by Provider: 12/20/24 20:21 History of Present Illness ED Provider: Dr. Quesada HPI narrative: 54 y/o F patient; PMH HTN; presents from Urgent Care with report of need for IV fluids . The patient states she tested positive for the norovirus and has had nausea/vomiting/diarrhea for the last 24 hours. During this time she has been unable to tolerate PO. She otherwise denies: difficulty breathing, chest pain, abdominal pain, syncope. Related Data Previous Rx's ?Medication ?Instructions ?Recorded nitrofurantoin 100 mg PO Q12H 5 days #10 caps 05/13/21 monohydrate/macrocrystals 100 mg capsule morphine 15 mg immediate release 15 mg PO Q8H PRN pain #10 tabs 11/01/21 tablet ondansetron 4 mg disintegrating 4 mg PO ONCE PRN nausea and 11/01/21 tablet vomiting #10 tabs amlodipine 5 mg tablet 5 mg PO DAILY #30 tabs 12/17/21 ondansetron HCl 4 mg tablet 4 mg PO Q6H PRN nausea and 12/20/24 vomiting 7 days #30 tabs Allergies Allergy/AdvReac Type Severity Reaction Status Date / Time amoxicillin [From AUGMENTIN] Allergy Unknown UNKNOWN Verified 12/20/24 16:26 clavulanic acid Allergy Unknown UNKNOWN Verified 12/20/24 16:26 [From AUGMENTIN] Penicillins [PENICILLINS] Allergy Unknown UNKNOWN Verified 12/20/24 16:26 Review of Systems Review of Systems: Yes all other systems are reviewed and are negative PMFSH Past Medical History Attestation statement: The following information was validated with the patient. Source: old records reviewed Medical History Depression ADHD Kidney stones Patient denies medical problems Social History Social History Patient Tobacco Use Status: Never used Tobacco Advance Directives: No Advance Directives Information Provided: Yes Physical Exam ED Vital Signs: Vital Signs - 24 hr 12/20/24 16:25 Temperature 98.4 F Pulse Rate 106 H Respiratory Rate 20 Blood Pressure 142/84 H Pulse Oximetry 98 Oxygen Delivery Method Room Air BMI result Body Mass Index 36.1 Patient is afebrile, mildly tachycardic, mildly hypertensive. Const General: cooperative HENMT Head: Yes normal to inspection and Yes atraumatic Eyes General: appearance normal, both eyes and all related structures Pupils: Equal, round and reactive pupils present EOM: EOMs intact bilaterally Neck Neck: Yes normal visual inspection, Yes full ROM, Yes supple and No tender Chest Chest palpation & inspection: normal inspection of the chest and normal palpation of entire chest wall Resp Effort & Inspection: normal respiratory effort, able to speak in complete sentences and no cough Auscultation: clear to auscultation bilaterally Cardio Rate: regular rate Rhythm: regular rhythm Peripheral pulses: Peripheral pulses 2+ throughout GI Inspection: No Abdominal wall edema and No distended Palpation (GI): Soft to palpation, not firm, nontender, no guarding and not rigid Auscultation: normal bowel sounds Back/Spine/Pelvis Back: No back tenderness Neuro Cranial nerves: Yes Equal, round and reactive pupils present Course Course Course Narrative: This is a Rapid Medical Examination (RME) performed by Nasir Jung PA-C in triage. Full HPI, ROS, assessment and treatment plan per primary provider in the Main ED. 54-year-old female hx CKD, HTN sent from urgent care for IV fluids. She tested positive for norovirus and has been unable to tolerate p.o. intake times 24 hours. + well-appearing Plan: Labs Reevaluation(s) Reevaluation #1: Patient is afebrile and hemodynamically stable. Reviewed triage labs which are reassuring - no significant evidence of dehydration. Providing 1L IVF and Zofran 4mg IV. Patient is tolerating liquid PO. Plan: Discharge to home with PCP follow up Return precautions given Rx Zofran sent to pharmacy Medical Decision Making Lab Data 12/20/24 16:36 12/20/24 16:35 Labs: Lab Results 12/20/24 12/20/24 Range/Units 16:35 16:36 WBC 9.9 (4.8-10.8) X10*3/uL RBC 5.28 (4.20-5.50) X10*6/uL Hgb 15.2 (12.0-16.0) g/dl Hct 44.6 (37.0-47.0) % MCV 84.5 (80.0-98.0) fL MCH 28.8 (27.0-33.0) pg MCHC 34.1 (31.0-35.0) g/dl RDW 13.3 (11.0-16.0) % Plt Count 390 D (160-400) X10*3/uL MPV 9.0 L (9.4-12.3) fL Immature Gran % (Auto) 0.3 (0.0-0.4) % Neut % (Auto) 78.7 H (45-73) % Lymph % (Auto) 14.6 L (20-40) % [place] % (Auto) 5.5 (2-11) % Eos % (Auto) 0.7 (0-4) % Baso % (Auto) 0.2 (0-2) % Lymph # (Auto) 1.4 (1.2-4.9) X10*3/uL [place] # (Auto) 0.5 (0.1-1.2) X10*3/uL Eos # (Auto) 0.1 (0.0-0.4) X10*3/uL Baso # (Auto) 0.0 (0.0-0.2) X10*3/uL Abs Immat Gran (auto) 0.03 (0.00-0.03) X10*3/uL Absolute Neuts (auto) 7.8 (2.0-8.3) x10*3/uL Absolute Nucleated RBC 0.000 (0.0-0.012) X10*3/uL Nucleated RBC % (auto) 0.0 (0.0-0.2) /100WBC Sodium 143 (135-145) mmol/L Potassium 4.2 (3.3-5.1) mmol/L Chloride 103 (96-108) mmol/L Carbon Dioxide 27 (22-29) mmol/L Anion Gap 17 (12-20) BUN 23 H (9-16) mg/dL Creatinine 1.09 (0.5-1.4) mg/dL Estim Creat Clear Calc 70.0 Estimated GFR 53 Random Glucose 87 (60-115) mg/dL Calcium 8.8 (8.4-10.2) mg/dL Magnesium 1.8 (1.6-2.6) mg/dL Total Bilirubin 0.9 (0.0-1.0) mg/dL AST 27 (5-31) U/L ALT 32 H (0-31) U/L Alkaline Phosphatase 75 (39-117) U/L Total Protein 7.6 (6.5-8.0) g/dL Albumin 4.1 (3.5-5.0) g/dL Lipase 11 (8-78) U/L Discharge Plan Discharge Clinical Impression: Gastroenteritis Patient Disposition: Home, Self-Care Instructions: Acute Nausea and Vomiting (ED) Additional Instructions: As we discussed, you were seen for gastroenterology symptoms. Your labs were reassuring without significant evidence of dehydration. You did received 1L IVF and Zofran 4mg IV. A prescription for Zofran (nausea medication) was also sent to your pharmacy to take every 6 - 8 hours as needed. Follow up with your PCP within the next 1 - 2 days for re-evaluation. Prescriptions: New ondansetron HCl 4 mg tablet 4 mg PO Q6H PRN (Reason: nausea and vomiting) 7 Days Qty: 30 0RF No Action nitrofurantoin monohyd/m-cryst 100 mg capsule 100 mg PO Q12H 5 Days Qty: 10 0RF Rx Instructions: must administer with a meal/food ondansetron 4 mg tablet,disintegrating 4 mg PO ONCE PRN (Reason: nausea and vomiting) Qty: 10 0RF morphine 15 mg tablet 15 mg PO Q8H PRN (Reason: pain) Qty: 10 0RF Rx Instructions: Patient can partially fill prescription upon request amlodipine 5 mg tablet 5 mg PO DAILY Qty: 30 0RF Print Language: Greenlandic
[2024-12-20 20:31] VITALS: BP 124/70; PULSE 104; RESP 16; TEMP 37; O2SAT 97
[2024-12-20] MEDS: 0.9 % Sodium Chloride 1,000 ML 999 ML IV (20:45)
[2024-12-20] MEDS: ondansetron HCL 4 MG/2 ML VIAL IVPUSH (20:48)
--- NOTE | 2024-12-20 20:59 | PC.NURSE ---
pt states she is unable to void due to dehydrated. last void was this morning. pt receiving ivf 1l ns at this time.
[2024-12-20 22:04] VITALS: BP 128/61; PULSE 75; RESP 16; TEMP 36.7; O2SAT 97
[2024-12-20 22:11] VITALS: BP 128/61; PULSE 75; RESP 16; TEMP 36.7; O2SAT 97
== END 2024-12-20 22:12 | disposition home or self-care (01) ==
PROVIDERS: Physician Assistant Medical; Emergency Provider Emergency Medicine; PCP Internal Medicine
DX: K52.9 Noninfective gastroenteritis and colitis, unspecified (principal); R11.2 Nausea with vomiting, unspecified; Z79.899 Other long term (current) drug therapy
CPT/HCPCS: 36415; 80053; 83690; 83735; 85025; 96361; 96374; 99284; J2405